=== PATIENT | female | born 1975 | race American Indian/Alaskan Native ===

== ENCOUNTER → 2016-07-12 | Outpatient (CLI) | payer MEDICAID, OTHER ==
--- NOTE | 2016-07-15 18:39 | US ---
EXAM DATE: 07/12/16 PATIENT'S AGE: 41 Patient: CASSANDRA HUIZAR Facility: [place], [place] Site . Site : [id number] Study: US OB Pelvis [id number]/[id number] 4:03:29 PM Ordering Physician: Trice Lopez Final Report: INDICATION: survey. TECHNIQUE: Conventional transabdominal two-dimensional grayscale ultrasound examination. COMPARISON: None. FINDINGS: There is a living fetus with gestational age of 19 weeks 2 days by LMP and today `s measurements. EDC is 12/04/2016. BPD: 4.4 cm, 19 weeks 1 day Head circumference: 16.7 cm, 19 weeks 2 days Abdominal circumference: 14.6 cm, 19 weeks 6 days Femur length: 2.9 cm, 18 weeks 6 days The weight is estimated at 288 grams, the 49th percentile. The heart rate is measured at 150 beats per minute and the rhythm appears regular. The head and spine are grossly intact. No gross facial abnormality is evident. The upper lip is intact. Four cardiac chambers are demonstrated. The heart and stomach appear to be on the same side. The diaphragm is intact. Two kidneys and a bladder are demonstrated. The cord insertion is normal and 3 cord vessels are noted. Four extremities are demonstrated. The amniotic fluid volume is within normal limits with LEISA of 12 cm. The placenta is anterior without obvious previa. An image of the cervix is not provided. IMPRESSION: 1. Living fetus with gestational age of 19 weeks 2 days by LMP and today`s measurements. EDC is 12/04/2016. 2. No anomaly evident. 3. Anterior placenta without obvious previa. However, an image of the cervix is not provided to document the relationship of the inferior edge of the placenta to the cervix. Dictated by Ramone Frazier MD @ Jul 15 2016 9:57AM (Electronic Signature) Report Signed by Proxy and Original Signed Document filed in the Medical Record. MTDD
== END ==
LOC: MW.US 15:07
PROVIDERS: ATTEND Obstetrics & Gynecology
DX: Z36 Encounter for antenatal screening of mother (principal); Z3A.19 19 weeks gestation of pregnancy
CPT/HCPCS: 76805; 76805-26

== ENCOUNTER → 2016-07-22 | Outpatient (CLI) | payer MEDICAID, OTHER | END | disposition home or self-care (01) | LOC: MW.CHOBGYN 09:01 | PROVIDERS: ATTEND Obstetrics & Gynecology | DX: Z34.90 Encounter for supervision of normal pregnancy, unspecified, unspecified trimester (principal) | CPT/HCPCS: 36415; 81003; 82105; 82677; 84702; 86336 ==

== ENCOUNTER 2016-11-14 17:24 | Emergency (ER) | payer MEDICAID, OTHER ==
[2016-11-14] MEDS ORDERED: Benzocaine 20% Topical Spray UD MUCMEM ONE (17:50)
[2016-11-14] MEDS ORDERED: Lidocaine 2% Viscous Solution 15 ML Cup PO ONE (17:50)
[2016-11-14 17:54] VITALS: BP 146/86
--- NOTE | 2016-11-14 17:57 | EDM.PDOC ---
ED HPI GENERAL MEDICAL PROBLEM - General Chief Complaint: General Stated Complaint: PT HAS TOOTHACHE Time Seen by Provider: 11/14/16 17:34 - History of Present Illness INITIAL COMMENTS - FREE TEXT/NARRATIVE: HISTORY AND PHYSICAL: History of present illness: The patient is a 41-year-old female who is a 4 para 3 and is currently with a due date of December 04 who presents with complaints of dental pain and discomfort. According to the patient she has known dental problems and is scheduled to get teeth pulled and dentures made the end of December after she delivers but her dentist does not feel comfortable doing any work until after she delivers the baby. She has had discomfort on-and-off but it flared up the last couple of days and there was swelling. The majority of her discomfort currently is localized to the right lower jaw area and she has been using ice to help with the pain as well as [id number] Tylenol. From a standpoint the patient says that she has good movement and has had no vaginal bleeding but she may have "lost her mucous plug" last night and she did have some abdominal pain/contractions last evening which she is unsure if they have continued. She is planning on delivering here with . Review of systems: As per history of present illness and below otherwise all systems reviewed and negative. Past medical history: As per history of present illness and as reviewed below otherwise noncontributory. Surgical history: As per history of present illness and as reviewed below otherwise noncontributory. Social history: No reported history of drug or alcohol abuse. Family history: As per history of present illness and as reviewed below otherwise noncontributory. Physical exam: Gen.: Well-developed well-nourished female who is visibly gravid but nontoxic and speaking clearly in the ED HEENT: Atraumatic, normocephalic, pupils reactive, negative for conjunctival pallor or scleral icterus, mucous membranes moist, throat clear, neck supple, nontender, trachea midline.There is no gross facial swelling appreciated. There are several areas of dental disease and gum swelling the most noteworthy is the right lower in the molar area as well as in the region of teeth 27, 28/29 she also has multiple teeth that are missing. There are multiple dental caries seen but there is no cervical adenopathy or nuchal rigidity. Lungs: Clear to auscultation, breath sounds equal bilaterally, chest nontender. Heart: S1S2, regular rate and rhythm no overt murmurs Abdomen: Soft, nondistended, nontender.Visibly gravid Skin: No overt rashes or lesions are seen and turgor is normal Genitourinary: Deferred. Rectal: Deferred. Extremities: Atraumatic, negative for cords or calf pain. Neurovascular unremarkable. Neuro: Awake, alert, oriented. Cranial nerves II through XII unremarkable. Cerebellum unremarkable. Motor and sensory unremarkable throughout. Exam nonfocal. Diagnostics: [] Therapeutics: Dental balls After discharge from the ER we will allow L&D to perform NST and evaluate the patient for contractions as she had the events of last night as described above. They will check for heart tones as well. Patient is comfortable with this plan. Did tell her that if she wanted something stronger than the dental balls for the discomfort she would have to contact her OB M.D. I will also give her amoxicillin Please note that L&D is full so once the patient is discharged from our care she will be moved to room 3 in the ED to be seen by labor and delivery for NST and heart tones as well as check Impression: Dental pain/infection, term Definitive disposition and diagnosis as appropriate pending reevaluation and review of above. - Related Data Allergies Allergy/AdvReac Type Severity Reaction Status Date / Time No Known Allergies Allergy Verified 11/14/16 17:47 Home Meds: Home Meds . 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: Neurological History: Reports: None Psychiatric History: Reports: None Endocrine/Metabolic History: Reports: Hypothyroidism Dermatologic History: Reports: None - Infectious Disease History Infectious Disease History: Reports: Chicken Pox, Measles, Mumps - Past Surgical History Female Surgical History: Reports: Other (See Below) Musculoskeletal Surgical History: Reports: Knee Replacement Social & Family History - Family History Family Medical History: Noncontributory - Tobacco Use Smoking Status *Q: Current Every Day Smoker Years of Tobacco use: 5 Packs/Tins Daily: 0.5 Second Hand Smoke Exposure: Yes - Caffeine Use Caffeine Use: Reports: None - Alcohol Use Days Per Week of Alcohol Use: 1 Number of Drinks Per Day: 1 Total Drinks Per Week: 1 - Recreational Drug Use Recreational Drug Use: No Drug Use in Last 12 Months: Yes Recreational Drug Type: Reports: Marijuana/Hashish Recreational Drug Use Frequency: Weekly 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 ED EXAM, GENERAL - Physical Exam Exam: See Below (See dictation) Course - Orders/Labs/Meds Orders: Medication Orders Benzocaine (Hurricaine One 20%) 2 each MUCMEM ONETIME ONE Stop: 11/14/16 17:51 Lidocaine HCl (Xylocaine 2% Viscous) 15 ml PO ONETIME ONE Stop: 11/14/16 17:51 Meds: Medications Generic Name Dose Route Start Last Admin Trade Name Freq PRN Reason Stop Dose Admin Benzocaine 2 each 11/14/16 17:50 Hurricaine One 20% MUCMEM 11/14/16 17:51 ONETIME ONE Lidocaine HCl 15 ml 11/14/16 17:50 Xylocaine 2% Viscous PO 11/14/16 17:51 ONETIME ONE Departure - Departure Time of Disposition: 17:56 Disposition: Home, Self-Care 01 Condition: Good Clinical Impression: Dental infection, Pain, dental - Discharge Information Forms: ED Department Discharge Additional Instructions: The following information is given to patients seen in the emergency department who are being discharged to home. This information is to outline your options for follow-up care. We provide all patients seen in our emergency department with a follow-up referral. The need for follow-up, as well as the timing and circumstances, are variable depending upon the specifics of your emergency department visit. If you don't have a primary care physician on staff, we will provide you with a referral. We always advise you to contact your personal physician following an emergency department visit to inform them of the circumstance of the visit and for follow-up with them and/or the need for any referrals to a consulting specialist. The emergency department will also refer you to a specialist when appropriate. This referral assures that you have the opportunity for followup care with a specialist. All of these measure are taken in an effort to provide you with optimal care, which includes your followup. Under all circumstances we always encourage you to contact your private physician who remains a resource for coordinating your care. When calling for followup care, please make the office aware that this follow-up is from your recent emergency room visit. If for any reason you are refused follow-up, please contact the [facility] emergency department at and ask to speak to the emergency department charge nurse. [facility] [address] [address] Please take antibiotics until they're finished and use the dental balls you have been given for discomfort as well as [id number] Tylenol. Contact her OB M.D. if you need something stronger for pain. Return as needed as discussed
== END 2016-11-14 18:02 | disposition home or self-care (01) ==
LOC: MW.ED 17:24
DX: O99.613 Diseases of the digestive system complicating pregnancy, third trimester (principal); K04.7 Periapical abscess without sinus; O99.333 Smoking (tobacco) complicating pregnancy, third trimester; F17.210 Nicotine dependence, cigarettes, uncomplicated; O99.283 Endocrine, nutritional and metabolic diseases complicating pregnancy, third trimester; E03.9 Hypothyroidism, unspecified; Z96.659 Presence of unspecified artificial knee joint
CPT/HCPCS: 99282; A9270

== ENCOUNTER 2016-12-01 23:57 | Inpatient (IN) | payer MEDICAID ==
[2016-12-02] MEDS ORDERED: Terbutaline 1 MG/ML SDV SUBCUT PRN ×2 (00:09→16:16)
[2016-12-02] MEDS ORDERED: Sodium Chloride 0.9% 10 ML Syringe FLUSH PRN (00:09)
[2016-12-02] MEDS ORDERED: Ampicillin 2 GM in Sodium Chloride 0.9% 100 ML IV ONE (00:09)
[2016-12-02] MEDS ORDERED: Water For Irrigation,Sterile 1,000 ML Container IRR PRN (00:09)
[2016-12-02] MEDS ORDERED: Misoprostol 200 MCG Tab PO PRN (00:09)
[2016-12-02] MEDS ORDERED: Nalbuphine 10 MG/1 ML Vial IVPUSH PRN (00:09)
[2016-12-02] MEDS ORDERED: Sodium Chloride 0.9% 2.5 ML Syringe FLUSH PRN (00:09)
[2016-12-02] MEDS ORDERED: Carboprost Tromethamine 250 MCG/1 ML Amp IM PRN (00:09)
[2016-12-02] MEDS ORDERED: Lidocaine 1% 50 ML MDV INJECT PRN (00:09)
[2016-12-02] MEDS ORDERED: Methylergonovine 0.2 MG/1 ML Amp IM PRN (00:09)
[2016-12-02] MEDS ORDERED: Oxytocin/Lactated Ringers 30 UNIT/500 ML BAG IV SCH ×3 (00:15→16:30)
[2016-12-02] MEDS: Misoprostol 25 MCG (1/4 of 100 MCG) Tab VAG SCH ×2 (01:44→07:33)
[2016-12-02] MEDS: Misoprostol 25 MCG (1/4 of 100 MCG) Tab PO SCH ×2 (01:44→07:33)
[2016-12-02] MEDS ORDERED: Misoprostol 25 MCG (1/4 of 100 MCG) Tab PO PRN (05:00)
[2016-12-02] MEDS ORDERED: Misoprostol 25 MCG (1/4 of 100 MCG) Tab VAG PRN (05:00)
[2016-12-02] MEDS: Lactated Ringers 1,000 ML IV SCH ×4 (05:35→16:44)
[2016-12-02] MEDS: Ampicillin 1 GM in Sodium Chloride 0.9% 50 ML IV SCH ×5 (05:35→22:15)
[2016-12-02] MEDS: Butorphanol 1 MG/ML SDV IVPUSH PRN ×3 (06:53→10:37)
--- NOTE | 2016-12-02 09:31 | PCM.LDHP ---
L&D History of Present Illness - General Date of Service: 12/02/16 Admit Problem/Dx: Patient Status Order with Admit Dx/Problem 12/02/16 00:10 Patient Status [ADT] Routine Admission Diagnosis/Problem Admission Diagnosis/Problem Source of Information: Patient History Limitations: Reports: No Limitations - History of Present Illness Pain Score: 5 Improves with: Reports: None Worsens with: Reports: None Associated Symptoms: Reports: N - Related Data Allergies/Adverse Reactions: Allergies Allergy/AdvReac Type Severity Reaction Status Date / Time No Known Allergies Allergy Verified 11/26/16 20:21 Home Medications: Home Meds Calcium Carbonate [Tums Extra Strength] 1 tab PO ASDIRECTED PRN 11/26/16 [ History] Past Medical History HEENT History: Reports: None Cardiovascular History: Reports: None Respiratory History: Reports: Asthma Gastrointestinal History: Reports: None 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 Musculoskeletal Surgical History: Reports: Knee Replacement Social & Family History - Family History Family Medical History: Noncontributory - Tobacco Use Smoking Status *Q: Current Every Day Smoker Years of Tobacco use: 7 Packs/Tins Daily: 1 Second Hand Smoke Exposure: Yes - Caffeine Use Caffeine Use: Reports: Coffee - Alcohol Use Days Per Week of Alcohol Use: 1 Number of Drinks Per Day: 1 Total Drinks Per Week: 1 - Recreational Drug Use Recreational Drug Use: Yes Drug Use in Last 12 Months: Yes Recreational Drug Type: Reports: Marijuana/Hashish Recreational Drug Use Frequency: Not Used In Over 6 Months Recreational Drug Last Use: beginning of H&P Review of Systems - Review of Systems: Review Of Systems: See Below General: Reports: No Symptoms HEENT: Reports: No Symptoms Pulmonary: Reports: No Symptoms Cardiovascular: Reports: No Symptoms Gastrointestinal: Reports: No Symptoms Genitourinary: Reports: No Symptoms Musculoskeletal: Reports: No Symptoms Skin: Reports: No Symptoms Psychiatric: Reports: No Symptoms Neurological: Reports: No Symptoms Hematologic/Lymphatic: Reports: No Symptoms Immunologic: Reports: No Symptoms L&D Exam - Exam Exam: See Below - Vital Signs Weight: 106.594 kg - OB Specific Fundal Height In cm: 37 Contraction Intensity: Moderate Heart Tones: Present Presentation: Vertex - Singh Score Singh Score Cervix Position: Anterior Singh Score Effacement: 51-70% Singh Score Dilation: 1-2 cm Singh Score Infant's Station: -1 ,0 - Exam General: Alert, Oriented HEENT: PERRLA, Conjunctiva Clear, EACs Clear, EOMI, Hearing Intact, Mucosa Moist & [place], Nares Patent, Normal Nasal Septum, Posterior Pharynx Clear, TMs Clear Neck: Supple, Trachea Midline Lungs: Clear to Auscultation, Normal Respiratory Effort Cardiovascular: Regular Rate, Regular Rhythm GI/Abdominal Exam: Normal Bowel Sounds, Soft, Non-Tender, No Organomegaly, No Distention, No Abnormal Bruit, No Mass, Pelvis Stable Rectal Exam: Normal Exam, Normal Rectal Tone Genitourinary: Normal external exam, Normal bimanual exam, Normal speculum exam Back Exam: Normal Inspection, Full Range of Motion Extremities: Normal Inspection, Normal Range of Motion, Non-Tender, No Pedal Edema, Normal Capillary Refill Skin: Warm, Dry, Intact Neurological: Cranial Nerves Intact, Reflexes Equal Bilateral Psychiatric: Alert, Normal Affect, Normal Mood - Patient Data Lab Results Last 24 hrs: Laboratory Results - last 24 hr 12/02/16 12/02/16 Range/Units 00:33 00:33 WBC 13.53 H (4.0-11.0) K/uL RBC 4.20 L (4.30-5.90) M/uL Hgb 11.8 L (12.0-16.0) g/dL Hct 36.6 (36.0-46.0) % MCV 87.1 (80.0-98.0) fL MCH 28.1 (27.0-32.0) pg MCHC 32.2 (31.0-37.0) g/dL RDW Std Deviation 49.1 (28.0-62.0) fl RDW Coeff of Megan 16 H (11.0-15.0) % Plt Count 388 (150-400) K/uL MPV 9.70 (7.40-12.00) fL Nucleated RBC % 0.0 /100WBC Nucleated RBCs # 0 K/uL Blood Type O POSITIVE Antibody Screen NEGATIVE Result Diagrams: 12/02/16 00:33 Problem List Initiated/Reviewed/Updated: Yes Orders Last 24hrs: Active Orders 24 hr Category Date Time Status Patient Status [ADT] Routine ADT 12/02/16 00:10 Active Bedrest Bathroom Privileges [RC] ASDIRECTED Care 12/02/16 00:10 Active Communication Order [RC] ASDIRECTED Care 12/02/16 00:10 Active Communication Order [RC] ASDIRECTED Care 12/02/16 00:10 Active Communication Order [RC] ASDIRECTED Care 12/02/16 00:10 Active Heart Tones [RC] CONTINUOUS Care 12/02/16 00:10 Active Non Stress Test [RC] PER UNIT ROUTINE Care 12/02/16 00:10 Active May Shower [RC] ASDIRECTED Care 12/02/16 00:10 Active Notify Provider [RC] PRN Care 12/02/16 00:10 Active Notify Provider [RC] PRN Care 12/02/16 00:10 Active Notify Provider [RC] PRN Care 12/02/16 00:10 Active Notify Provider [RC] STAT Care 12/02/16 00:10 Active Oxygen Therapy [RC] ASDIRECTED Care 12/02/16 00:10 Active Peripheral IV Care [RC] . DIRECTED Care 12/02/16 00:09 Active Up ad Aydee [RC] ASDIRECTED Care 12/02/16 00:10 Active Vaginal Exam [RC] PRN Care 12/02/16 00:10 Active Vaginal Exam [RC] PRN Care 12/02/16 00:10 Active Vital Signs [RC] PER UNIT ROUTINE Care 12/02/16 00:10 Active Vital Signs [RC] PER UNIT ROUTINE Care 12/02/16 00:10 Active Regular Diet [DIET] Diet 12/02/16 Breakfast Active Ampicillin 1 gm Med 12/02/16 05:00 Active Sodium Chloride 0.9% [Normal Saline] 50 ml IV Q4H Butorphanol [Stadol] Med 12/02/16 00:09 Active 1 mg IVPUSH Q1H PRN Carboprost Tromethamine [Hemabate DS] Med 12/02/16 00:09 Active 250 mcg IM ASDIRECTED PRN Lactated Ringers [Ringers, Lactated] 1,000 ml Med 12/02/16 00:15 Active IV ASDIRECTED Lidocaine 1% [Xylocaine 1%] Med 12/02/16 00:09 Active 50 ml INJECT .ONCE PRN Methylergonovine [Methergine] Med 12/02/16 00:09 Active 0.2 mg IM ASDIRECTED PRN Misoprostol [Cytotec] Med 12/02/16 00:09 Active 200 mcg PO .ONCE PRN Misoprostol [Cytotec] Med 12/02/16 00:15 Active 25 mcg PO .ONCE Misoprostol [Cytotec] Med 12/02/16 05:00 Active 25 mcg PO Q4H PRN Misoprostol [Cytotec] Med 12/02/16 00:15 Active 25 mcg VAG .ONCE Misoprostol [Cytotec] Med 12/02/16 05:00 Active 25 mcg VAG Q4H PRN Oxytocin/Lactated Ringers [Pitocin in LR 30 Units/500 Med 12/02/16 06:00 Active ML] 30 unit in 500 ml IV TITRATE Sodium Chloride 0.9% [Saline Flush] Med 12/02/16 00:09 Active 10 ml FLUSH ASDIRECTED PRN Sodium Chloride 0.9% [Saline Flush] Med 12/02/16 00:09 Active 2.5 ml FLUSH ASDIRECTED PRN Terbutaline [Brethine] Med 12/02/16 00:09 Active 0.25 mg SUBCUT ASDIRECTED PRN Water For Irrigation,Sterile [Sterile Water for Med 12/02/16 00:09 Active Irrigation] 1,000 ml IRR ASDIRECTED PRN Scalp Electrode [WOMSER] Per Unit Routine Oth 12/02/16 00:10 Ordered Medication Administration Instruction [OM.PC] Q3H Oth 12/02/16 00:15 Ordered Peripheral IV Insertion Adult [OM.PC] Routine Oth 12/02/16 00:10 Ordered Resuscitation Status Routine Resus Stat 12/02/16 00:09 Ordered Medication Orders Butorphanol Tartrate (Stadol) 1 mg IVPUSH Q1H PRN PRN Reason: Pain Last Admin: 12/02/16 08:42 Dose: 1 mg Admin: 12/02/16 06:53 Dose: 1 mg Carboprost Tromethamine (Hemabate Ds) 250 mcg IM ASDIRECTED PRN PRN Reason: Post Hemorrhage Ampicillin Sodium 1 gm/ Sodium (Chloride) 50 mls @ 100 mls/hr IV Q4H [facility] Last Admin: 12/02/16 05:35 Dose: 100 mls/hr Lactated Ringer's (Ringers, Lactated) 1,000 mls @ 150 mls/hr IV ASDIRECTED [facility] Last Admin: 12/02/16 05:35 Dose: 150 mls/hr Oxytocin/Lactated Ringer's (Pitocin In Lr 30 Units/500 Ml) 30 unit in 500 mls @ 2 mls/hr IV TITRATE ALLY; 2 MUNITS/MIN PRN Reason: Protocol Lidocaine HCl (Xylocaine 1%) 50 ml INJECT .ONCE PRN PRN Reason: Laceration repair Methylergonovine Maleate (Methergine) 0.2 mg IM ASDIRECTED PRN PRN Reason: Post Hemorrhage Misoprostol (Cytotec) 200 mcg PO .ONCE PRN PRN Reason: Post Hemorrhage Misoprostol (Cytotec) 25 mcg VAG .ONCE [facility] Last Admin: 12/02/16 07:33 Dose: 25 mcg Admin: 12/02/16 01:44 Dose: 25 mcg Misoprostol (Cytotec) 25 mcg VAG Q4H PRN PRN Reason: Cervical Ripening Stop: 12/03/16 09:01 Misoprostol (Cytotec) 25 mcg PO .ONCE [facility] Last Admin: 12/02/16 07:33 Dose: 25 mcg Admin: 12/02/16 01:44 Dose: 25 mcg Misoprostol (Cytotec) 25 mcg PO Q4H PRN PRN Reason: Cervical Ripening Stop: 12/03/16 09:01 Sodium Chloride (Saline Flush) 10 ml FLUSH ASDIRECTED PRN PRN Reason: Keep Vein Open Sodium Chloride (Saline Flush) 2.5 ml FLUSH ASDIRECTED PRN PRN Reason: Keep Vein Open Sterile Water (Sterile Water For Irrigation) 1,000 ml IRR ASDIRECTED PRN PRN Reason: delivery Terbutaline Sulfate (Brethine) 0.25 mg SUBCUT ASDIRECTED PRN PRN Reason: Tacysystole Assessment/Plan Comment:: Term admitted for elective induction
[2016-12-02] MEDS ORDERED: Ropivacaine HCl/PF 100 ML ONE ×2 (12:01→20:38)
[2016-12-02] MEDS ORDERED: fentaNYL 100 MCG/2 ML SDV ONE (12:01)
--- NOTE | 2016-12-02 12:29 | PCM.PREANE ---
Preanesthetic Assessment - Anesthesia/Transfusion/Family Hx Anesthesia History: Prior Anesthesia Without Reaction Transfusion History: No Prior Transfusion(s) Intubation History: Unknown - Review of Systems General: No Symptoms Pulmonary: No Symptoms Cardiovascular: No Symptoms, Other (BP has been elevated today - pt denies any problems with this in this past) Gastrointestinal: No Symptoms Neurological: No Symptoms Other: Reports: Anxiety (r/t labor pain) - Physical Assessment NPO Status Date: 12/02/16 NPO Status Time: 12:26 (sips/chips) Pulse: 68 Blood Pressure: 155/85 Height: 5 ft 7 in Weight: 235 lb ASA Class: 2 Mental Status: Alert & Oriented x3 Airway Class: Mallampati = 2 Dentition: Reports: Normal Dentition Lungs: Clear to Auscultation, Normal Respiratory Effort Cardiovascular: Regular Rate, Regular Rhythm - Lab Values: Laboratory Last Values WBC 13.53 K/uL (4.0-11.0) H 12/02/16 00:33 RBC 4.20 M/uL (4.30-5.90) L 12/02/16 00:33 Hgb 11.8 g/dL (12.0-16.0) L 12/02/16 00:33 Hct 36.6 % (36.0-46.0) 12/02/16 00:33 MCV 87.1 fL (80.0-98.0) 12/02/16 00:33 MCH 28.1 pg (27.0-32.0) 12/02/16 00:33 MCHC 32.2 g/dL (31.0-37.0) 12/02/16 00:33 RDW Std Deviation 49.1 fl (28.0-62.0) 12/02/16 00:33 RDW Coeff of Megan 16 % (11.0-15.0) H 12/02/16 00:33 Plt Count 388 K/uL (150-400) 12/02/16 00:33 MPV 9.70 fL (7.40-12.00) 12/02/16 00:33 Nucleated RBC % 0.0 /100WBC 12/02/16 00:33 Nucleated RBCs # 0 K/uL 12/02/16 00:33 Blood Type O POSITIVE 12/02/16 00:33 Antibody Screen NEGATIVE 12/02/16 00:33 - Allergies Allergies/Adverse Reactions: Allergies Allergy/AdvReac Type Severity Reaction Status Date / Time No Known Allergies Allergy Verified 11/26/16 20:21 - Blood Blood Available: No Product(s) Available: None - Anesthesia Plan Free Text/Narrative:: Labor Epidural - Acknowledgements Anesthesia Type Planned: Epidural Pt an Appropriate Candidate for the Planned Anesthesia: Yes Alternatives and Risks of Anesthesia Discussed w Pt/Guardian: Yes Pt/Guardian Understands and Agrees with Anesthesia Plan: Yes PreAnesthesia Questionnaire HEENT History: Reports: None Cardiovascular History: Reports: None, Hypertension (Pt denies hx, but elevated today) Respiratory History: Reports: Asthma Gastrointestinal History: Reports: None, GERD 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 Musculoskeletal Surgical History: Reports: Knee Replacement - SUBSTANCE USE Smoking Status *Q: Current Every Day Smoker Tobacco Use Within Last Twelve Months: Cigarettes (1 ppd) Second Hand Smoke Exposure: Yes Days Per Week of Alcohol Use: 1 Number of Drinks Per Day: 1 Total Drinks Per Week: 1 Recreational Drug Use History: Yes Recreational Drug Type: Reports: Marijuana/Hashish Recreational Drug Last Use: beginning of - HOME MEDS Home Medications: Home Meds Calcium Carbonate [Tums Extra Strength] 1 tab PO ASDIRECTED PRN 11/26/16 [ History] - CURRENT (IN HOUSE) MEDS Current Meds: Current Medications Butorphanol Tartrate (Stadol) 1 mg IVPUSH Q1H PRN PRN Reason: Pain Last Admin: 12/02/16 10:37 Dose: 1 mg Carboprost Tromethamine (Hemabate Ds) 250 mcg IM ASDIRECTED PRN PRN Reason: Post Hemorrhage Ampicillin Sodium 1 gm/ Sodium (Chloride) 50 mls @ 100 mls/hr IV Q4H ALLY Last Admin: 12/02/16 09:33 Dose: 100 mls/hr Lactated Ringer's (Ringers, Lactated) 1,000 mls @ 150 mls/hr IV ASDIRECTED ALLY Last Admin: 12/02/16 12:24 Dose: 500 mls/hr Oxytocin/Lactated Ringer's (Pitocin In Lr 30 Units/500 Ml) 30 unit in 500 mls @ 2 mls/hr IV TITRATE ALLY; 2 MUNITS/MIN PRN Reason: Protocol Lidocaine HCl (Xylocaine 1%) 50 ml INJECT .ONCE PRN PRN Reason: Laceration repair Methylergonovine Maleate (Methergine) 0.2 mg IM ASDIRECTED PRN PRN Reason: Post Hemorrhage Misoprostol (Cytotec) 200 mcg PO .ONCE PRN PRN Reason: Post Hemorrhage Misoprostol (Cytotec) 25 mcg VAG .ONCE ALLY Last Admin: 12/02/16 07:33 Dose: 25 mcg Misoprostol (Cytotec) 25 mcg VAG Q4H PRN PRN Reason: Cervical Ripening Stop: 12/03/16 09:01 Misoprostol (Cytotec) 25 mcg PO .ONCE ALLY Last Admin: 12/02/16 07:33 Dose: 25 mcg Misoprostol (Cytotec) 25 mcg PO Q4H PRN PRN Reason: Cervical Ripening Stop: 12/03/16 09:01 Sodium Chloride (Saline Flush) 10 ml FLUSH ASDIRECTED PRN PRN Reason: Keep Vein Open Sodium Chloride (Saline Flush) 2.5 ml FLUSH ASDIRECTED PRN PRN Reason: Keep Vein Open Sterile Water (Sterile Water For Irrigation) 1,000 ml IRR ASDIRECTED PRN PRN Reason: delivery Terbutaline Sulfate (Brethine) 0.25 mg SUBCUT ASDIRECTED PRN PRN Reason: Tacysystole Discontinued Medications Fentanyl (Sublimaze) Confirm Administered Dose 100 mcg .ROUTE .STK-MED ONE Stop: 12/02/16 12:02 Ampicillin Sodium 2 gm/ Sodium (Chloride) 100 mls @ 200 mls/hr IV ONETIME ONE Stop: 12/02/16 00:38 Last Admin: 12/02/16 01:26 Dose: 200 mls/hr Oxytocin/Lactated Ringer's (Pitocin In Lr 30 Units/500 Ml) 30 unit in 500 mls @ 250 mls/hr IV TITRATE ALLY PRN Reason: 250 MUNITS/MIN Stop: 12/02/16 02:14 Ropivacaine (Naropin 0.2%) Confirm Administered Dose 100 mls @ as directed .ROUTE .STK-MED ONE Stop: 12/02/16 12:02 Nalbuphine HCl (Nubain) 10 mg IVPUSH Q1H PRN PRN Reason: Pain (severe 7-10) Stop: 12/02/16 02:10
[2016-12-02] MEDS: Nicotine 21 MG/24 Hr Patch TRDERM SCH (15:34)
[2016-12-03] MEDS ORDERED: Ropivacaine HCl/PF 100 ML ONE (02:09)
[2016-12-03] MEDS: Ampicillin 1 GM in Sodium Chloride 0.9% 50 ML IV SCH ×2 (02:11→09:34)
[2016-12-03] MEDS ORDERED: fentaNYL 100 MCG/2 ML SDV ONE (03:52)
[2016-12-03] MEDS ORDERED: Bupivacaine 0.5% 10 ML SDV ONE (03:52)
[2016-12-03] MEDS ORDERED: Oxytocin 10 Units/1 ML SDV IM ONE (04:12)
[2016-12-03] MEDS ORDERED: Docusate Sodium 100 MG Cap PO PRN (04:17)
[2016-12-03] MEDS ORDERED: Ibuprofen 400 MG Tab PO PRN (04:17)
[2016-12-03] MEDS ORDERED: oxyCODONE 5 MG Tab PO PRN (04:17)
[2016-12-03] MEDS ORDERED: Lanolin 100% Cream 7 GM Tube TOP PRN (04:17)
[2016-12-03] MEDS ORDERED: Oxytocin 10 Units/1 ML SDV ONE (04:17)
[2016-12-03] MEDS ORDERED: Bisacodyl 10 MG Supp RECTAL PRN (04:17)
[2016-12-03] MEDS ORDERED: Acetaminophen 500 MG Tab PO PRN ×2 (04:17)
[2016-12-03] MEDS ORDERED: Witch Hazel Medicated Pads 40/Jar TOP PRN (04:17)
[2016-12-03] MEDS ORDERED: Benzocaine/Menthol 20%-0.5% Spray 78 GM Cannister TOP PRN (04:17)
--- NOTE | 2016-12-03 05:04 | OR ---
SURGEON: John Carnes MD DATE OF PROCEDURE: DELIVERY NOTE: Ms. Singleton is a 41-year-old patient. She is para 3-0-0-3. Her last 10 years ago. She was 39+ weeks, and she was admitted for elective induction with Cytotec and Pitocin. At the time of admission, she was dilated to 1 to 2 cm vertex, 50% effaced. The patient was induced with Cytotec and Pitocin. Her GBS status was positive. The patient started on antibiotic as according to the protocol, the patient had spontaneous rupture of the membrane at 9 o'clock in the morning on the day of her admission, she progressed rather slowly. She needed Pitocin augmentation, and the patient's heart rate had a variable deceleration but a quick recovery with good variability and felt to be that the heart rate is category I. The patient progressed to 8 to 9, 0 to +1 station and then she pushed in excess of 2 hours without any good success, I felt that I can do a vacuum extraction on her and reduce her anterior lip so with the patient consent and after explaining that to her, Kiwi vacuum extraction was placed in place and with gentle pulling and the patient was pushing, I was able to reduce the anterior lips and then the patient accomplishing an easy vacuum extraction and vaginal of male fetus, cried immediately. score reported to be 8 and 9. The weight was not available. Dr. Clark was present at the time of the delivery. The placenta delivered spontaneous, complete, and intact without any problem. There was no need for episiotomy, and there was no tear. Estimated blood loss 250 to 300 mL. There was no complication in this labor and . CHRISTOPHE / KARO /[id number]
--- NOTE | 2016-12-03 10:42 | PCM48HPAN ---
Post Anesthesia Note - EVALUATION WITHIN 48HRS OF ANESTHETIC Vital Signs in Normal Range: Yes Patient Participated in Evaluation: Yes Respiratory Function Stable: Yes Airway Patent: Yes Cardiovascular Function Stable: Yes Hydration Status Stable: Yes Pain Control Satisfactory: Yes Nausea and Vomiting Control Satisfactory: Yes Mental Status Recovered: Yes
[2016-12-03] MEDS: Nicotine 21 MG/24 Hr Patch TRDERM SCH ×2 (17:10→18:05)
[2016-12-03] MEDS: Ibuprofen 800 MG Tab PO PRN ×2 (17:35→23:41)
[2016-12-04 08:47] VITALS: BP 147/73
--- NOTE | 2016-12-04 08:54 | PCM.DCSUM1 ---
Discharge Summary - Discharge Data Discharge Date: 12/04/16 Discharge Disposition: Home, Self-Care 01 Condition: Good - Patient Instructions Diet: Usual Diet as Tolerated Activity: As Tolerated Driving: Do Not Drive Showering/Bathing: May Shower - Discharge Plan Home Medications: Home Meds Calcium Carbonate [Tums Extra Strength] 1 tab PO ASDIRECTED PRN 11/26/16 [ History] Referrals: [facility] [Outside] John Carnes MD [Physician] - 01/14/17 9:30 am - General Info Date of Service: 12/04/16 Functional Status: Reports: Pain Controlled - Review of Systems General: Reports: No Symptoms HEENT: Reports: No Symptoms Pulmonary: Reports: No Symptoms Cardiovascular: Reports: No Symptoms Gastrointestinal: Reports: No Symptoms Genitourinary: Reports: No Symptoms Musculoskeletal: Reports: No Symptoms Skin: Reports: No Symptoms Neurological: Reports: No Symptoms Psychiatric: Reports: No Symptoms - Patient Data Vitals - Most Recent: Last Vital Signs Temp 36.3 C 12/04/16 07:30 Pulse 70 12/04/16 07:30 Resp 16 12/04/16 07:30 BP 147/73 H 12/04/16 07:30 Pulse Ox 97 12/04/16 07:30 Weight - Most Recent: 106.594 kg Lab Results - Last 24 hrs: Laboratory Results - last 24 hr 12/04/16 Range/Units 04:40 Hgb 10.5 L (12.0-16.0) g/dL Hct 32.7 L (36.0-46.0) % Med Orders - Current: Current Medications Acetaminophen (Tylenol Extra Strength) 500 mg PO Q4H PRN PRN Reason: Pain Acetaminophen (Tylenol Extra Strength) 1,000 mg PO Q4H PRN PRN Reason: Pain Benzocaine/Menthol (Dermoplast Pain Relief 20%-0.5% [place]) 78 gm TOP ASDIRECTED PRN PRN Reason: Perineal Comfort Measure Bisacodyl (Dulcolax) 10 mg RECTAL .ONCE PRN PRN Reason: Constipation Butorphanol Tartrate (Stadol) 1 mg IVPUSH Q1H PRN PRN Reason: Pain Last Admin: 12/02/16 10:37 Dose: 1 mg Carboprost Tromethamine (Hemabate Ds) 250 mcg IM ASDIRECTED PRN PRN Reason: Post Hemorrhage Docusate Sodium (Colace) 100 mg PO BID PRN PRN Reason: Constipation Emollient Ointment (Lansinoh Hpa) 0 gm TOP ASDIRECTED PRN PRN Reason: Sore Nipples Ampicillin Sodium 1 gm/ Sodium (Chloride) 50 mls @ 100 mls/hr IV Q4H [facility] Last Admin: 12/03/16 09:34 Dose: Not Given Lactated Ringer's (Ringers, Lactated) 1,000 mls @ 150 mls/hr IV ASDIRECTED ALLY Last Admin: 12/02/16 16:44 Dose: 500 mls/hr Oxytocin/Lactated Ringer's (Pitocin In Lr 30 Units/500 Ml) 30 unit in 500 mls @ 2 mls/hr IV TITRATE ALLY; 2 MUNITS/MIN PRN Reason: Protocol Last Titration: 12/03/16 03:59 Dose: 4 munits/min, 4 mls/hr Oxytocin/Lactated Ringer's (Pitocin In Lr 30 Units/500 Ml) 30 unit in 500 mls @ 2 mls/hr IV TITRATE ALLY; 2 MUNITS/MIN PRN Reason: Protocol Ibuprofen (Motrin) 400 mg PO Q4H PRN PRN Reason: Pain Ibuprofen (Motrin) 800 mg PO Q6H PRN PRN Reason: Pain Last Admin: 12/03/16 23:41 Dose: 800 mg Lidocaine HCl (Xylocaine 1%) 50 ml INJECT .ONCE PRN PRN Reason: Laceration repair Methylergonovine Maleate (Methergine) 0.2 mg IM ASDIRECTED PRN PRN Reason: Post Hemorrhage Misoprostol (Cytotec) 200 mcg PO .ONCE PRN PRN Reason: Post Hemorrhage Misoprostol (Cytotec) 25 mcg VAG .ONCE ALLY Last Admin: 12/02/16 07:33 Dose: 25 mcg Misoprostol (Cytotec) 25 mcg PO .ONCE ALLY Last Admin: 12/02/16 07:33 Dose: 25 mcg Nicotine (Habitrol) 21 mg TRDERM Q24H ALLY Last Admin: 12/03/16 18:05 Dose: 21 mg Oxycodone HCl (Oxycodone) 5 mg PO Q2H PRN PRN Reason: Pain Sodium Chloride (Saline Flush) 10 ml FLUSH ASDIRECTED PRN PRN Reason: Keep Vein Open Sodium Chloride (Saline Flush) 2.5 ml FLUSH ASDIRECTED PRN PRN Reason: Keep Vein Open Sterile Water (Sterile Water For Irrigation) 1,000 ml IRR ASDIRECTED PRN PRN Reason: delivery Terbutaline Sulfate (Brethine) 0.25 mg SUBCUT ASDIRECTED PRN PRN Reason: Tacysystole Terbutaline Sulfate (Brethine) 0.25 mg SUBCUT ASDIRECTED PRN PRN Reason: Tacysystole Witch Brittaney (Tucks) 1 pad TOP ASDIRECTED PRN PRN Reason: comfort care Last Admin: 12/03/16 17:36 Dose: 1 pad Discontinued Medications Bupivacaine HCl (Sensorcaine-Mpf 0.5%) Confirm Administered Dose 20 ml .ROUTE .STK-MED ONE Stop: 12/03/16 03:53 Last Admin: 12/03/16 09:33 Dose: Not Given Fentanyl (Sublimaze) Confirm Administered Dose 100 mcg .ROUTE .STK-MED ONE Stop: 12/02/16 12:02 Last Admin: 12/03/16 09:32 Dose: Not Given Fentanyl (Sublimaze) Confirm Administered Dose 100 mcg .ROUTE .STK-MED ONE Stop: 12/03/16 03:53 Last Admin: 12/03/16 09:33 Dose: Not Given Ampicillin Sodium 2 gm/ Sodium (Chloride) 100 mls @ 200 mls/hr IV ONETIME ONE Stop: 12/02/16 00:38 Last Admin: 12/02/16 01:26 Dose: 200 mls/hr Oxytocin/Lactated Ringer's (Pitocin In Lr 30 Units/500 Ml) 30 unit in 500 mls @ 250 mls/hr IV TITRATE ALLY PRN Reason: 250 MUNITS/MIN Stop: 12/02/16 02:14 Ropivacaine (Naropin 0.2%) Confirm Administered Dose 100 mls @ as directed .ROUTE .STK-MED ONE Stop: 12/02/16 12:02 Last Admin: 12/03/16 09:32 Dose: Not Given Ropivacaine (Naropin 0.2%) Confirm Administered Dose 100 mls @ as directed .ROUTE .STK-MED ONE Stop: 12/02/16 20:39 Last Admin: 12/03/16 09:33 Dose: Not Given Ropivacaine (Naropin 0.2%) Confirm Administered Dose 100 mls @ as directed .ROUTE .STK-MED ONE Stop: 12/03/16 02:10 Last Admin: 12/03/16 09:33 Dose: Not Given Misoprostol (Cytotec) 25 mcg VAG Q4H PRN PRN Reason: Cervical Ripening Stop: 12/03/16 09:01 Misoprostol (Cytotec) 25 mcg PO Q4H PRN PRN Reason: Cervical Ripening Stop: 12/03/16 09:01 Nalbuphine HCl (Nubain) 10 mg IVPUSH Q1H PRN PRN Reason: Pain (severe 7-10) Stop: 12/02/16 02:10 Oxytocin (Pitocin) Confirm Administered Dose 10 unit .ROUTE .STK-MED ONE Stop: 12/03/16 04:18 Last Admin: 12/03/16 04:20 Dose: 10 unit Oxytocin (Pitocin) 10 unit IM ONETIME ONE Stop: 12/03/16 04:13 - Exam General: Reports: Alert, Oriented HEENT: Reports: Pupils Equal, Pupils Reactive, EOMI, Mucous Membr. Moist/[place] Neck: Reports: Supple Lungs: Reports: Clear to Auscultation, Normal Respiratory Effort Cardiovascular: Reports: Regular Rate, Regular Rhythm GI/Abdominal Exam: Normal Bowel Sounds, Soft, Non-Tender, No Organomegaly, No Distention, No Abnormal Bruit, No Mass, Pelvis Stable (Female) Exam: Normal External Exam, Normal Speculum Exam, Normal Bimanual Exam Rectal (Female) Exam: Normal Exam, Normal Rectal Tone Back Exam: Reports: Normal Inspection, Full Range of Motion Extremities: Normal Inspection, Normal Range of Motion, Non-Tender, No Pedal Edema, Normal Capillary Refill Skin: Reports: Warm, Dry, Intact Wound/Incisions: Reports: Healing Well Neurological: Reports: No New Focal Deficit Psy/Mental Status: Reports: Alert, Normal Affect, Normal Mood *Q Meaningful Use (DIS) - VTE *Q VTE Criteria *Q: - Stroke *Q Stroke Criteria *Q: - AMI *Q AMI Criteria *Q:
[2016-12-04] MEDS: Ampicillin 1 GM in Sodium Chloride 0.9% 50 ML IV SCH ×2 (09:29→09:30)
== END 2016-12-04 09:25 | disposition home or self-care (01) | DRG 775 ==
LOC: MW.OBCHECK 23:57 → MW.OB 12-02 → MW.OBCHECK 12-02 00:10 → OBSVTOIN 12-03 04:07
PROVIDERS: ADMIT Obstetrics & Gynecology; ATTEND Obstetrics & Gynecology
PROC: 10D07Z6 Extraction of Products of Conception, Vacuum, Via Natural or Artificial Opening (ICD-10-PCS; principal; 2016-12-03)
PROC: 3E0P7GC Introduction of Other Therapeutic Substance into Female Reproductive, Via Natural or Artificial Opening (ICD-10-PCS; 2016-12-03)
PROC: 3E033VJ Introduction of Other Hormone into Peripheral Vein, Percutaneous Approach (ICD-10-PCS; 2016-12-03)
DX: O32.4XX0 Maternal care for high head at term, not applicable or unspecified (principal); O66.5 Attempted application of vacuum extractor and forceps; Z3A.39 39 weeks gestation of pregnancy; Z37.0 Single live birth
CPT/HCPCS: 36415; 51703; 59025; 85014; 85018; 85027; 86850; 86900; 86901; A9270-GY; J0290; J0595; J2590; J2795; J3010; J7030; J7050; J7120